=== PATIENT | male | born 1970 | race Caucasian/White ===

== ENCOUNTER 2021-10-13 09:38 | Emergency (ER) | payer BC, SELFPAY ==
--- NOTE | 2021-10-13 10:26 | ED.GENADULT ---
HPI - General Adult General Chief complaint: Cardiac Arrest/CPR Stated complaint: cardiac arrest History of Present Illness HPI narrative: The patient is a 51-year-old male who is otherwise healthy, no significant past medical history, who collapsed while in the shower this morning. Bystander CPR was started by the . EMS was notified. Upon their arrival, he was in asystole. Epinephrine was administered and an airway was established with the I-gel. CPR was continued. He received a total of 4 mg of epinephrine prior to arrival. He did have a question of ventricular fibrillation, so 300 mg of amiodarone was given but NO shock was given per EMS. His glucose was 204 by EMS. The patient yesterday had felt tired and weak with fatigue. He did take a home COVID test that was negative. He did complain of trouble breathing yesterday and this morning. No chest pain per family. Upon arrival, the patient was in full arrest, with ACLS protocol in place. Review of Systems Review of Systems: ROS unobtainable: Yes unobtainable due to endotracheal tube, unobtainable due to medical condition and unobtainable due to mental status Exam Const: General: patient obtunded Other: Full CPR in place, GCS 3 T, intubated with the I-gel, bagged. HENMT: Head: normal to inspection, no contusions, no hematomas and no lacerations Ears: other ( pupils fixed and dilated bilaterally, nonresponsive nonreactive) Other: no evidence of facial trauma Eyes: Pupils: Dilated pupils and Fixed pupils Chest: Other: no signs of trauma Resp: Other: air entry bilaterally with bag-mask ventilation Cardio: Other: No pulse without CPR. GI: Other: soft, non-distended Skin: Wounds: wounds noted ( Right elbow superficial abrasion noted) Neuro: Other: GCS 3 T, nonresponsive Extrem: Other: no spontaneous movement Psych: Other: unable to assess given CPR Course Course Emergency Course: The patient was switched over to the Suman device and CPR was continued upon his arrival at 09:38 am. There was a good pulse with CPR throughout his ER course. CPR was started by the at 9:00 a.m. EMS had given 4 mg of epinephrine and 300 mg of amiodarone but no shock had been given. Upon arrival, the patient was in asystole. Initially, he was bagged with the I-gel in place. He was intubated with a 7.5 ETT, 23 cm at the lips, equal and symmetric air entry bilaterally with end-tidal CO2 noted on the monitor. In the ED, the patient received 9 more mg of epinephrine, 3 ampules of calcium (2 gram calcium chloride and 1 gram calcium gluconate), and 3 ampules of bicarbonate. There was never any return of spontaneous cardiac activity. At times, he had pulseless electrical activity but there was no pulse with that. No ventricular fibrillation while in the ED. No perfusing rhythm. He had a good pulse with CPR but no pulse without CPR on numerous pulse checks. The oxygen saturation was low, at 80% maximum, despite 100% FiO2 and good CPR. Cardiac standstill was confirmed with a portable Doppler of the heart with no cardiac spontaneous activity. After all measures had been exhausted, the patient at 10:17 a.m.. The was at the bedside at the time. The gun examiner was notified. Procedures Intubation Intubation #1: Intubation Date: 10/13/21 sedative: none Laryngoscope: Clemente Tube Size (cm): 3.0 Method of Intubation: orotracheal Number of Attempts: 1 Tube Secured Depth (cm): 23 Tube Secured Location: lips Tube Placement Confirmation: visualized tube passing through cords, equal breath sounds bilaterally and confirmation by capnometry Patient Tolerated Procedure: no complications Intubation Complications: none Critical Care Time Critical Care Time Critical Care Time: Yes Total Critical Care Time: 39 Discharge Plan Discharge Clinical Impression: Cardiac arre
--- NOTE | 2021-10-13 11:02 | PC.NURSE ---
1025 - senior software test engineer contacted. will be arriving to speak with the family riley. 1028 - [facility] contacted. information provided. states pt is not eligible for donation. family at bedside. chairs provided. 1040 - deputy prosecuting attorney mansoor arrives. information provided. speaking with family. 1055 - deputy prosecuting attorney speaking on phone with senior software test engineer, discussing pt. additional family arrives and is at pt bedside with doreen ().
--- NOTE | 2021-10-13 11:30 | PC.NURSE ---
1120 - [facility] called requesting further pt information. states they will be calling . 1125 - chief deputy coroner at bedside. states he releases pt for home. 1130 - home contacted
--- NOTE | 2021-10-13 12:02 | PC.NURSE ---
and sister at pt bedside. sx body release.
--- NOTE | 2021-10-13 12:16 | PC.NURSE ---
0943 - erp extubated pt. cardio staff ventilating pt via ambu bag. 0944 - 2nd IV site obtained per VIVIENNE nick. #18 angio, right a/c. 1000ml normal saline fluids started w/o. 0945 - erp intubated pt without difficulty. 0946 - sidestream co2...27 0953 - family taken to the grief room. informed erp will see riley. informed CPR remains in progress. 1004 - at bedside. erp speaking with her about resuscitation efforts 1005 - initial bag of saline infused through left a/c. 2nd bag of normal saline 1000ml started to same. 1015 - erp using ULS over heart to confirm no activity without CPR 1016 - erp speaking with . agreed to stop efforts.
== END 2021-10-13 12:48 | disposition expired ==
PROVIDERS: Emergency Provider Emergency Medicine
DX: I46.9 Cardiac arrest, cause unspecified (principal)
CPT/HCPCS: 31500; 92950; 96374; 96375; 99285; J0171; J0610